=== PATIENT | male | born 1940 | race Two or more races ===

== ENCOUNTER 2017-08-19 16:16 | Inpatient (IN) | payer MEDICARE, MEDICAID ==
[~2017-08-19] VITALS: Ht 182.9 cm; Wt 81.2 kg
--- NOTE | 2017-08-19 16:38 | NUR ---
PT TO ED ROOM 10: Feeling dizzy with nausea and vomiting since yesterday. A/A/O. AMBULATORY WITH STEADY GAIT. SIDE RAILS UP. HOB ELEVATED. AWAITING EVALUATION BY ER PROVIDER.
--- NOTE | 2017-08-19 16:56 | NUR ---
PATIENT AND HIS VERBALLY AGGRESSIVE AND ABUSIVE.
[2017-08-19] MEDS ORDERED: ONDANSETRON HCL/PF 4 MG/2 ML VIAL ONE (17:18)
[2017-08-19] MEDS ORDERED: PANTOPRAZOLE 40 MG VIAL ONE (17:18)
[2017-08-19] MEDS ORDERED: MORPHINE SULFATE INJ 4 MG/ML DISP.SYRIN ONE (17:18)
[2017-08-19] MEDS ORDERED: ONDANSETRON HCL/PF 4 MG/2 ML VIAL IV ONE (17:30)
[2017-08-19] MEDS ORDERED: IV NS 0.9% 1,000 ML BAG IV ONE (17:30)
[2017-08-19] MEDS ORDERED: PANTOPRAZOLE 40 MG VIAL IV ONE (17:30)
[2017-08-19] MEDS ORDERED: MORPHINE SULFATE INJ 2 MG/ML DISP.SYRIN IV ONE (17:30)
[2017-08-19 17:33] LABS: BASOPHILS % (AUTO) 0.6 % (0.0-2.0); EOSINOPHILS % (AUTO) 0.9 % (0.0-6.0); HEMATOCRIT 49 % (39-51); LYMPHOCYTES # (AUTO) 0.8 /CMM (0.8-4.8); LYMPHOCYTES % (AUTO) 11.8 % (20.0-44.0); MEAN CORPUSCULAR HGB CONC 35 g/dl (31.0-36.0); MEAN CORPUSCULAR VOLUME 86 fL (80-96); MONOCYTES # (AUTO) 0.4 /CMM (0.1-1.30); MONOCYTES % (AUTO) 5.5 % (2.0-12.0); NEUTROPHILS # (AUTO) 5.8 /CMM (1.8-8.9); NEUTROPHILS % (AUTO) 81.2 % (43.0-81.0); PLATELET COUNT (AUTO) 164 /CMM (150-450); RDW COEFFICIENT OF VARIATION 13.6 (11.5-15.0); RED BLOOD CELL COUNT(AUTO) 5.66 MIL/uL (4.5-6.0); WHITE BLOOD COUNT (AUTO) 7.1 K/uL (4.3-11.0)
[2017-08-19 17:42] LABS: CALCIUM, SERUM 8.4 mg/dL (8.5-10.1); CARBON DIOXIDE 28 mmol/L (21-32); CHLORIDE 103 mmol/L (98-107); CREATININE 0.8 mg/dL (0.6-1.3); GLUCOSE 98 mg/dL (74-106); POTASSIUM 3.9 mmol/L (3.5-5.1); SODIUM SERUM 139 mmol/L (136-145); UREA NITROGEN, BLOOD 15 mg/dL (7-18)
[2017-08-19 17:48] LABS: ALANINE AMINOTRANSFERASE 34 U/L (12-78); ALBUMIN 3.9 g/dL (3.4-5.0); ALKALINE PHOSPHATASE 73 U/L (46-116); ASPARTATE AMINOTRANSFERASE 16 U/L (15-37); BILIRUBIN,DIRECT 0.3 mg/dL (0.0-0.2); TOTAL PROTEIN, SERUM 7.7 g/dL (6.4-8.2)
[2017-08-19 17:50] LABS: INR 1.06 (0.85-1.15)
[2017-08-19 18:05] LABS: TROPONIN I < 0.017 ng/mL (0.00-0.056)
[2017-08-19] MEDS ORDERED: IV NS 0.9% 500 ML BAG IV ONE (19:00)
--- NOTE | 2017-08-19 19:07 | NUR ---
REPORT RECEIVED FROM GIGI MENDES FOR ASHISH.
--- NOTE | 2017-08-19 19:28 | NUR ---
CALLED NURSING FUNERAL DIRECTOR AND REQUESTED A TELE BED.
--- NOTE | 2017-08-19 19:28 | NUR ---
PT TO CT VIA STRETCHER.
--- NOTE | 2017-08-19 20:03 | NUR ---
NADEEM YU TOOK REPORT FOR TELE ADMI
--- NOTE | 2017-08-19 20:14 | NUR ---
MD AT BEDSIDE SPEAKING WITH PATIENT.
[2017-08-19 20:30] VITALS: BP 135/74
[2017-08-19] MEDS ORDERED: ACETAMINOPHEN 325 MG TABLET PO PRN (20:30)
[2017-08-19] MEDS ORDERED: MORPHINE SULFATE INJ 2 MG/ML DISP.SYRIN IV PRN (20:30)
[2017-08-19] MEDS: Potassium Chloride 20 MEQ in IV D5/0.45 NACL 1,000 ML IV SCH (20:30)
[2017-08-19] MEDS ORDERED: MAGNESIUM HYDROXIDE 30 ML UDC PO PRN (20:30)
[2017-08-19] MEDS ORDERED: Z GUARD REMEDY 2 OZ OINT TP PRN (20:30)
[2017-08-19] MEDS ORDERED: ONDANSETRON HCL/PF 4 MG/2 ML VIAL IVP PRN (20:30)
--- NOTE | 2017-08-19 20:30 | NUR ---
DESIGN LEADALTITUDE CHAMBER TECHNICIAN NOTES ADMITTED 77YO MALE PT WITH DX OF DIZZINESS. PT ALERT, ORIENTED X4, VERBALLY RESPONSIVE. ON ROOM AIR, RESPIRATIONS EVEN, UNLABORED, NO APPARENT DISTRESS NOTED. DENIES ANY PAIN OR DISCOMFORT AT THIS TIME. IV SITE RAC INTACT, PATENT. NSR 66. BODY ASSESSMENT DONE. NO EPISODE OF NAUSEA, NO VOMITING NOTED. REFUSED NASOGASTRIC TUBE TO BE INSERTED, OFFERED X 3 EXPLAINED, REFUSED, [place], STREET PHOTOGRAPHER NOTIFIED. CALL LIGHT WITHIN REACH. BED LOCKED IN LOWEST POSITION. ATTENDED ALL NEEDS. WILL CONTINUE TO MONITOR ACCORDINGLY.
--- NOTE | 2017-08-19 20:40 | NUR ---
SANITATION WORKER NOTE UNABLE TO SCAN D5 0.45% NACL WITH 20 MEQ KCL, VERIFIED WITH TWO RNS. ADMINISTERED ORDERED.
[2017-08-19 22:00] VITALS: BP 135/74
[2017-08-19] MEDS ORDERED: IV PREMIX D5 1/2NS + KCL 1,000 ML IV ONE (22:19)
[2017-08-20] VITALS: BP 130/74
[2017-08-20 00:49] VITALS: BP 130/74
[2017-08-20 04:19] VITALS: BP 109/59
--- NOTE | 2017-08-20 06:20 | NUR ---
PORTABLE MACHINE SANDER CLOSING NOTES PT IN BED RESTING COMFORTABLY, ON ROOM AIR, RESPIRATIONS EVEN, UNLABORED, NO APPARENT DISTRESS NOTED. NO COMPLAIN OF NAUSEA AT THIS TIME, NO VOMITING. STILL COMPLAINING OF SLIGHT DIZZINESS. IV SITE RAC INTACT. ON D5 1/2 NS AND KCL 20MEQ. NSR 68. KEPT CLEAN AND COMFORTABLE, ATTENDED ALL NEEDS. WILL CONTINUE TO MONITOR ACCORDINGLY.
[2017-08-20 06:41] LABS: BASOPHILS % (AUTO) 0.3 % (0.0-2.0); EOSINOPHILS % (AUTO) 2.1 % (0.0-6.0); HEMATOCRIT 43 % (39-51); HEMOGLOBIN 14.8 g/dL (13.5-17.5); LYMPHOCYTES # (AUTO) 0.9 /CMM (0.8-4.8); LYMPHOCYTES % (AUTO) 13.2 % (20.0-44.0); MEAN CORPUSCULAR HGB CONC 35 g/dl (31.0-36.0); MEAN CORPUSCULAR VOLUME 87 fL (80-96); MONOCYTES # (AUTO) 0.6 /CMM (0.1-1.30); MONOCYTES % (AUTO) 8.2 % (2.0-12.0); NEUTROPHILS # (AUTO) 5.4 /CMM (1.8-8.9); NEUTROPHILS % (AUTO) 76.2 % (43.0-81.0); PLATELET COUNT (AUTO) 155 /CMM (150-450); RDW COEFFICIENT OF VARIATION 14.8 (11.5-15.0); RED BLOOD CELL COUNT(AUTO) 4.91 MIL/uL (4.5-6.0); WHITE BLOOD COUNT (AUTO) 7.1 K/uL (4.3-11.0)
[2017-08-20 06:55] LABS: CALCIUM, SERUM 7.5 mg/dL (8.5-10.1); CARBON DIOXIDE 29 mmol/L (21-32); CHLORIDE 106 mmol/L (98-107); CREATININE 0.8 mg/dL (0.6-1.3); GLUCOSE 83 mg/dL (74-106); MAGNESIUM 1.8 mg/dL (1.8-2.4); PHOSPHORUS 2.5 mg/dL (2.5-4.9); POTASSIUM 3.6 mmol/L (3.5-5.1); SODIUM SERUM 141 mmol/L (136-145); UREA NITROGEN, BLOOD 12 mg/dL (7-18)
[2017-08-20 06:57] LABS: CHOLESTEROL 107 mg/dL (<200); HDL CHOLESTEROL 33 mg/dL (40-60); IRON, SERUM 107 ug/dl (50-175); LDL 74 mg/dL (0-99); TOTAL IRON BINDING CAPACITY 225 ug/dl (250-450); TRIGLYCERIDES 62 mg/dL (30-150)
[2017-08-20] MEDS ORDERED: FENTANYL PF 100MCG/2ML AMPUL IV PRN ×2 (07:30)
--- NOTE | 2017-08-20 07:30 | NUR ---
DYNAMITE RECLAIMER OPENING NOTE PATIENT IS ALERT AND ORIENTED x4. NO PAIN AT THIS TIME. NO SOB OR DISTRESS NOTED. CALL LIGHT WITHIN REACH. SAFETY MEASURES IMPLEMENTED. ABLE TO COMMUNICATE NEEDS. CURRENTLY NPO AT THIS TIME. LABS PENDING.AMBULATORY WITH ASSISTANCE. IV INTACT AND PATENT WITH IV FLUIDS RUNNING AT THIS TIME TOLERATING WELL AT 75 ML/HR. AWAITING MD CONSULT WITH DR. HEART. WILL CONTINUE TO MONITOR THROUGHOUT SHIFT.
[2017-08-20] MEDS ORDERED: CALC3.8S BNOSTRILS (07:40)
[2017-08-20 08:00] VITALS: BP 102/56
[2017-08-20] MEDS ORDERED: PANTOPRAZOLE 40 MG VIAL IV SCH (09:00)
[2017-08-20] MEDS: Potassium Chloride 20 MEQ in IV D5/0.45 NACL 1,000 ML IV SCH (09:25)
[2017-08-20] MEDS ORDERED: ONDA4TAB5 PO (11:28)
--- NOTE | 2017-08-20 11:31 | NUR ---
WIRER MAINTENANCE NOTE PATIENT SENT HOME IN STABLE CONDITION, ALERT AND ORIENTED x4. NO PAIN AT THIS TIME. NO SOB OR DISTRESS NOTED. ALL DUE MEDICATIONS GIVEN ORDERED. ALL NURSING CARE NEEDS ATTENDED TO. PRESCRIPTION GIVEN TO PATIENT AND . ALL DISCHARGE INSTRUCTIONS GIVEN TO PATIENT AT BEDSIDE, ABLE TO RETURN ALL INSTRUCTIONS. ALL BELONGINGS ACCOUNTED FOR AND WITH PATIENT AT DISCHARGE. FOLLOW UP APPOINTMENT IN CLINIC. LEFT VIA PRIVATE CAR WITH
== END 2017-08-20 11:30 | disposition home or self-care (01) | DRG 392 ==
LOC: ER 16:25 → TELE 20:02 → MED 08-20 09:02
PROVIDERS: ADMIT Registered Nurse; ATTEND Registered Nurse
DX: A08.4 Viral intestinal infection, unspecified (principal); E86.0 Dehydration; R42 Dizziness and giddiness
CPT/HCPCS: 36415; 70450-TC; 71045-TC; 74018; 80048-TC; 80061-TC; 80076-TC; 82746; 83540-TC; 83690-TC; 83735-TC; 84100-TC; 84484-TC; 85025-TC; 85730-TC; 87040-TC; 87081-TC; A4606; C9113; J2270; J2405; J3480; J3490; J7030; J7040; Z7610

== ENCOUNTER 2018-11-03 10:47 | Inpatient (IN) | payer MEDICARE, MEDICAID ==
[~2018-11-03] VITALS: Ht 175.3 cm; Wt 84.4 kg
[2018-11-03] VITALS (14 sets, daily range): BP systolic 114–162; BP diastolic 34–91
[~2018-11-03 10:47] MED LIST: CALC3.8S BNOSTRILS; ONDA4TAB5 PO
--- NOTE | 2018-11-03 11:05 | NUR ---
"woke up around 830 with dizziness/not balanced/dont feel well around 830a" +L Facial droop. Patient a/ox3, breathing even and unlabored, no distress noted. No s/sx of stroke noted at this time. Attached to the monitor. IV line established on right ac. Dr. Patel at bedside for eval.
[2018-11-03 11:16] LABS: BASOPHILS # (AUTO) 0.1 /CMM (0.0-0.2); BASOPHILS % (AUTO) 0.9 % (0.0-2.0); EOSINOPHILS % (AUTO) 2.5 % (0.0-6.0); HEMATOCRIT 46 % (39-51); LYMPHOCYTES # (AUTO) 1.2 /CMM (0.8-4.8); LYMPHOCYTES % (AUTO) 20.3 % (20.0-44.0); MEAN CORPUSCULAR HGB CONC 35 g/dl (31.0-36.0); MEAN CORPUSCULAR VOLUME 87 fL (80-96); MONOCYTES # (AUTO) 0.5 /CMM (0.1-1.30); MONOCYTES % (AUTO) 7.9 % (2.0-12.0); NEUTROPHILS # (AUTO) 4.2 /CMM (1.8-8.9); NEUTROPHILS % (AUTO) 68.4 % (43.0-81.0); PLATELET COUNT (AUTO) 137 /CMM (150-450); RED BLOOD CELL COUNT(AUTO) 5.24 MIL/uL (4.5-6.0); WHITE BLOOD COUNT (AUTO) 6.1 K/uL (4.3-11.0)
[2018-11-03] MEDS ORDERED: ASPI81TA44 PO (11:28)
[2018-11-03] MEDS ORDERED: MELO-107 PO (11:28)
[2018-11-03 11:29] LABS: CALCIUM, SERUM 8.4 mg/dL (8.5-10.1); CARBON DIOXIDE 25 mmol/L (21-32); CHLORIDE 106 mmol/L (98-107); CREATININE 0.9 mg/dL (0.6-1.3); GLUCOSE 111 mg/dL (74-106); SODIUM SERUM 139 mmol/L (136-145); UREA NITROGEN, BLOOD 20 mg/dL (7-18)
--- NOTE | 2018-11-03 11:42 | NUR ---
patient taken to CT, in stable condition.
[2018-11-03] MEDS ORDERED: ASPIRIN 325 MG TABLET PO ONE (12:30)
[2018-11-03] MEDS ORDERED: ASPIRIN 325 MG TABLET ONE (12:45)
--- NOTE | 2018-11-03 13:14 | NUR ---
ADMIT TO 102 JACQUELYN, ROB OROURKE, OSCAR DIZZINESS, R/O CVA
--- NOTE | 2018-11-03 13:25 | NUR ---
REPORT GIVEN TO CARL YU.
--- NOTE | 2018-11-03 14:00 | NUR ---
PATIENT RECEIVED FROM ER. TEMP 97.5, BP 156/86, HR 62, 98% ON RA. PATIENT REPORTS LEFT SIDED WEAKNESS, DIZZINESS, DIFFICULTY SPEAKING. WORKFORCE MANAGER STRENGTHS UNEQUAL, WEAKER ON LEFT. SMILE EQUAL. SHOULDER SHRUG EQUAL. FAMILY AT BEDSIDE. WILL CONTINUE TO MONITOR
[2018-11-03] MEDS ORDERED: ACETAMINOPHEN 325 MG TABLET PO PRN (16:00)
--- NOTE | 2018-11-03 16:40 | NUR ---
DR. RIVAS CAME TO ASSESS PATIENT, STATES PATIENT SEEMS THE SAME TO HER, ORDERED ICU TRANSFER WITH NEUROCHECKS Q1HR, REPEAT CT IF NECESSARY. NO FURTHER ORDERS. Addendum: 11/03/18 at 2020 by ANIBAL DELGADO RN TIME ERROR.
--- NOTE | 2018-11-03 18:20 | NUR ---
TEXTED DR. RIVAS, PATIENT STRENGTH ON LEFT SIDE IS WEAKER, SMILE IS MORE DROOPY ON LEFT SIDE. PATIENT ON 1L O2, SPO2 98%, BP IS 156/86.
--- NOTE | 2018-11-03 18:40 | NUR ---
DR. RIVAS CAME TO ASSESS PATIENT, STATES PATIENT SEEMS THE SAME TO HER, ORDERED ICU TRANSFER WITH NEUROCHECKS Q1HR, REPEAT CT IF NECESSARY. NO FURTHER ORDERS.
--- NOTE | 2018-11-03 19:30 | NUR ---
BUYER ASSISTANT: RECEIVED PT A/O X 3 WT SLIGHTLY SLURRED SPEECH, SLIGHT LEFT FACIAL DROOP AND LEFT SIDE WEAKNESS. RESTLESS. AFEBRILE. SR WT BBB ON MOTOR BRAKEMAN. ON 2L 02 VIA NC WT 02 SAT 94% AND ABOVE. AWAITING CTA BRAIN AND NECK. SAFETY PRECAUTION NOTED AT ALL TIMES. WILL CONTINUE TO MONITOR. SAFETY PRECAUTION NOTED.
[2018-11-03] MEDS ORDERED: CT SWABBABLE VALVE TRANS SET 1 EA INFUS.SET MC ONE (19:36)
[2018-11-03] MEDS ORDERED: IV NS 0.9% 250 ML IV ONE (19:36)
[2018-11-03] MEDS ORDERED: IOHEXOL-350 100 ML VIAL IV ONE (19:36)
[2018-11-03 23:00] LABS: ABG BASE EXCESS -0.8 mmol/L; ABG OXYGEN SATURATION 93.5 % (92.0-98.5); ABG PCO2 35.4 mmHg (35.0-45.0); ABG PH 7.428 (7.350-7.450); ABG PO2 70.9 mmHg (75.0-100.0); AaDO2 36.4 mmHg; COHb 0.6 % (0.5-1.5); MetHb 0.6 % (0.0-1.5); O2Hb 92.4 % (94.0-97.0); SITE, ABG Right Radial
--- NOTE | 2018-11-03 23:00 | NUR ---
SUPERVISOR GRAPHITE: NOTIFIED SIRI ZENG NP OF CTA BRAIN AND NECK RESULTS. PT VERBALIZED HE WANTS TO DRINK/EAT. SWALLOW SCREEN AT BEDSIDE PERFORMED AND PASSED. NO S/S OF ASPIRATION. FAX MACHINE REPAIRER SAID TO CONTINUE CURRENT DIET. PT ABLE TO EAT WHOLE SOUP FROM FOOD TRAY AND DRINK FLUIDS WT NO DIFFICULTY. HOB AT 90 DEGREES. ASPIRATION PRECAUTION NOTED AT ALL TIMES. WILL CONTINUE TO MONITOR.
[2018-11-04] VITALS (34 sets, daily range): BP systolic 72–188; BP diastolic 20–105
--- NOTE | 2018-11-04 03:00 | NUR ---
AUTOMOTIVE TIRE TECHNICIAN: SIRI, WEB PRESS ROLL TENDER AT BEDSIDE TO EVALUATE PT. MORE RESTLESS AND ANXIOUS. STILL WT LEFT SIDE WEAKNESS & LEFT FACIAL DROOP. AWAITING ORDERS.
[2018-11-04] MEDS: IV NS 0.9% 1,000 ML IV PRN ×2 (03:13→18:24)
[2018-11-04] MEDS: ATORVASTATIN 40 MG TABLET PO SCH ×2 (03:15→21:55)
[2018-11-04 04:48] LABS: BASOPHILS % (AUTO) 0.5 % (0.0-2.0); EOSINOPHILS % (AUTO) 1.5 % (0.0-6.0); HEMATOCRIT 46 % (39-51); HEMOGLOBIN 15.8 g/dL (13.5-17.5); LYMPHOCYTES % (AUTO) 14.7 % (20.0-44.0); MEAN CORPUSCULAR HGB CONC 35 g/dl (31.0-36.0); MEAN CORPUSCULAR VOLUME 87 fL (80-96); MONOCYTES # (AUTO) 0.7 /CMM (0.1-1.30); MONOCYTES % (AUTO) 9.6 % (2.0-12.0); NEUTROPHILS # (AUTO) 5.3 /CMM (1.8-8.9); NEUTROPHILS % (AUTO) 73.7 % (43.0-81.0); PLATELET COUNT (AUTO) 144 /CMM (150-450); RED BLOOD CELL COUNT(AUTO) 5.24 MIL/uL (4.5-6.0); WHITE BLOOD COUNT (AUTO) 7.1 K/uL (4.3-11.0)
[2018-11-04 04:59] LABS: CALCIUM, SERUM 8.2 mg/dL (8.5-10.1); CARBON DIOXIDE 23 mmol/L (21-32); CHLORIDE 105 mmol/L (98-107); CREATININE 0.8 mg/dL (0.6-1.3); GLUCOSE 118 mg/dL (74-106); POTASSIUM 3.7 mmol/L (3.5-5.1); SODIUM SERUM 138 mmol/L (136-145); UREA NITROGEN, BLOOD 18 mg/dL (7-18)
[2018-11-04 05:13] LABS: APPEARANCE,URINE CLEAR (CLEAR); BILIRUBIN,URINE NEGATIVE (NEGATIVE); BLOOD, URINE 1+ Ery/uL (NEGATIVE); COLOR,URINE YELLOW (YELLOW); KETONES,URINE NEGATIVE (NEGATIVE); LEUKOCYTE ESTERASE ,URINE NEGATIVE (NEGATIVE); NITRITE, URINE NEGATIVE (NEGATIVE); PH,URINE 7.5 (5.0-8.0); PROTEIN,URINE NEGATIVE (NEGATIVE); UGLUCOSE NEGATIVE (NEGATIVE); UROBILINOGEN,URINE 0.2 EU/dL (0.2)
[2018-11-04 05:22] LABS: THYROID STIMULATING HORMONE 1.418 uIU/mL (0.358-3.74)
[2018-11-04 05:30] LABS: BACTERIA,URINE Rare /HPF (None Seen); SQUAMOUS EPITHELIAL CELL,UR Rare /HPF (None Seen); WBC,URINE 0-2 /HPF (0-3)
--- NOTE | 2018-11-04 06:45 | NUR ---
DIRECTOR OF ADVERTISING SALES: PT REMAINS A/O X 3, STILL ON 2L O2 VIA NC. RESTLESS AND ANXIOUS THROUGHOUT THE SHIFT. TRANSFERRED ROOM CLOSER TO NURSE STATION WT FREQUENT VISUAL CHECKS AND REASSURANCE. C/O OF LEFT ARM AND LEFT LEG HAVE PROGRESSIVELY GOTTEN WORSE DURING THE SHIFT. STILL SLURRED SPEECH AND LEFT FACIAL DROOP. LEFT A MSG. TO ELEANOR HORNER. ABLE TO DRINK FLUIDS WT NO DIFFICULTY. SAFETY AND ASPIRATION PRECAUTIONS NOTED AT ALL TIMES. WILL ENDORSE TO DAY SHIFT FOR CONTINUITY OF CARE.
--- NOTE | 2018-11-04 07:15 | NUR ---
RECEIVED PATIENT ALERT AND AWAKE. PER SHIVANI YU PATIENT TRANSFERRED TO ICU FOR Q1H NEURO CHECKS AFTER C/O INCREASED WEAKNESS TO LEFT SIDE. PATIENT NOTED WITH LEFT FACIAL DROOPING SLIGHTLY SLURRED SPEECH HOWEVER ABLE TO UNDERSTAND. TOLERATING LOW FLOW NASAL CANNULA. PER RN PATIENT DID NOT SLEEP LAST NIGHT AND FREQUENT EPISODES OF ANXIETY AND RESTLESSNESS NOTED. PATIENT NEEDY AND DEMANDING SO MOVED TO A ROOM CLOSER TO NURSES STATION. NO S/S DISTRESS NOTED. NO SOB OR DIFFICULTY BREATHING. ALL NEEDS IN REACH AND NEEDS ASSESSED. NSR WITH BBB. PATIENT C/OF SHAKING TO LEFT HAND THAT KEEPS HIM FROM SLEEPING; NOTED WITH PREVIOUS HX OF SHAKING. SKIN, SAFETY, ASPIRATION PRECAUTIONS IN PLACE AND WILL MONITOR Addendum: 11/04/18 at 1006 by JOHN SORIANO RN patient right upper and lower wnl. patient left lower severe weakness however able to press against pressure. left upper extremity no grisp strength but able to raise and lower extremity.
--- NOTE | 2018-11-04 08:30 | NUR ---
dr oscar at bedside. aware patient left sided weakness worsened from yesterday. pending miroslava consult Addendum: 11/04/18 at 1932 by JOHN SORIANO RN per md spivey for permissive htn sbp 170 or under okay
[2018-11-04] MEDS: ASPIRIN 81 MG TAB.CHEW PO SCH ×2 (08:35→08:51)
--- NOTE | 2018-11-04 11:15 | NUR ---
patient c/o chronic arm pain. per dr celestina nickerson to give prn tylenol ordered or if desired norco 5/325 prn po qh as needed for pain.
--- NOTE | 2018-11-04 11:20 | NUR ---
patient resting without distress. at bedside.
--- NOTE | 2018-11-04 12:04 | NUR ---
PER DR RIVAS PLEASE ORDER BRAIN MRI WITH AND WITHOUT PER DR PEACE AND DR GUERRERO
--- NOTE | 2018-11-04 13:05 | NUR ---
CALLED X RAY TO HAVE MRI STAT.. DR PEACE AT BEDSIDE FOR EVAL. PER MD ORDER PLAVIX 75MG DAILY TO START NOW. ORDER HEMOPHILIA TEST
--- NOTE | 2018-11-04 13:28 | NUR ---
NOTIFIED DR PEACE HEMOPHILIA LABS WILL TAKE ABOUT 5 DAYS PER HOME ATTENDANT. PER DR CHU F/U WITH CASE MANAGEMENT TO HAVE PATIENT D/C PLANNING TO [facility]. SPOKE WITH HETAL.
[2018-11-04] MEDS: CLOPIDOGREL BISULFATE 75 MG TABLET PO SCH (13:46)
[2018-11-04] MEDS: HYDROCODONE/APAP 5/325MG 1 EACH TABLET PO PRN ×2 (13:52→18:26)
--- NOTE | 2018-11-04 13:52 | NUR ---
PER DR ROB FERRER TO GIVE NORCO NOW PRIOR TO MRI FOR PAIN
--- NOTE | 2018-11-04 14:38 | NUR ---
SPOKE WITH GRAIN BLENDERGURDEEP FARMER.WILL HAVE MRI STARTED IN 30 MIN
--- NOTE | 2018-11-04 16:00 | NUR ---
TOOK PATIENT DOWN TO MRI:[id number] RETURNED FROM MRI PATIENT STABLE : [id number]
--- NOTE | 2018-11-04 17:18 | NUR ---
RECEIVED RESULTS FROM MRI FROM DR NORIEGA. NOTIFIED DR PEACE; WOULD LIKE TO SPEAK WITH DR NORIEGA...DR NORIEGA NOTIFIED. PER DR RIVAS PLEASE ORDER JULIÁN PER DR PEACE REQUEST.
--- NOTE | 2018-11-04 18:30 | NUR ---
dr colorado at bedside discussing mri results with patient. no new orders. given patient son art # to update.
--- NOTE | 2018-11-04 19:31 | NUR ---
care endorsed to rn for carol. all due meds given and all needs met. no deterioration in condition. patient able to move both upper and lower left extremities. no difficulty swallowing. iv site c/d/i/p with ivf per order. skin, safety, aspiration precautions in place and monitored
--- NOTE | 2018-11-04 20:15 | NUR ---
this publicity writer called Dr Buchanan and ended up speaking to Sarah Beth BAND BIAS MACHINE OPERATOR made aware pt bp was systolic 177 and pt stated he had insomnia also pt very anxious stated she will review pt's charts and write new orders.
--- NOTE | 2018-11-04 23:30 | NUR ---
dr oscar exchange was called again spoke with mayra vincent about pt b/p remains elevated the latest one sbp in the 180's and how the pt remains agitated but alert and oriented to see if she wanted to order something for his bp she said okay charge nurse at the side of this race and sports book writer when talking to nursing attendant
[2018-11-05] VITALS (20 sets, daily range): BP systolic 124–178; BP diastolic 48–80
[2018-11-05] MEDS ORDERED: hydrALAZINE HCL IV 20 MG VIAL IV PRN
--- NOTE | 2018-11-05 | NUR ---
was given apresoline for htn with effect bp 140/80 comfort and safety maintained
[2018-11-05] MEDS: HYDROCODONE/APAP 5/325MG 1 EACH TABLET PO PRN ×2 (00:23→22:27)
[2018-11-05 05:07] LABS: BASOPHILS % (AUTO) 0.5 % (0.0-2.0); EOSINOPHILS % (AUTO) 1.6 % (0.0-6.0); HEMATOCRIT 45 % (39-51); HEMOGLOBIN 15.6 g/dL (13.5-17.5); LYMPHOCYTES # (AUTO) 1.1 /CMM (0.8-4.8); LYMPHOCYTES % (AUTO) 12.7 % (20.0-44.0); MEAN CORPUSCULAR HGB CONC 35 g/dl (31.0-36.0); MEAN CORPUSCULAR VOLUME 88 fL (80-96); MONOCYTES # (AUTO) 0.7 /CMM (0.1-1.30); NEUTROPHILS # (AUTO) 6.3 /CMM (1.8-8.9); NEUTROPHILS % (AUTO) 76.2 % (43.0-81.0); PLATELET COUNT (AUTO) 136 /CMM (150-450); RED BLOOD CELL COUNT(AUTO) 5.11 MIL/uL (4.5-6.0); WHITE BLOOD COUNT (AUTO) 8.3 K/uL (4.3-11.0)
[2018-11-05 05:13] LABS: CALCIUM, SERUM 7.9 mg/dL (8.5-10.1); CARBON DIOXIDE 23 mmol/L (21-32); CHLORIDE 105 mmol/L (98-107); CREATININE 0.7 mg/dL (0.6-1.3); GLUCOSE 105 mg/dL (74-106); MAGNESIUM 1.5 mg/dL (1.8-2.4); PHOSPHORUS 3.4 mg/dL (2.5-4.9); POTASSIUM 3.4 mmol/L (3.5-5.1); SODIUM SERUM 139 mmol/L (136-145); UREA NITROGEN, BLOOD 15 mg/dL (7-18)
--- NOTE | 2018-11-05 07:45 | NUR ---
ICU/RN: Pt received, A&Ox4, no distress noted, pt noted with L sided weakness, L sided facial droop, slurred speech. Anxious. Educated pt on poc, meds, s/s stroke, verbalized understanding. Agrees to take meds as ordered. Hygienic care rendered. Will cont to monitor pt.
[2018-11-05] MEDS: ASPIRIN 81 MG TAB.CHEW PO SCH (08:31)
[2018-11-05] MEDS: CLOPIDOGREL BISULFATE 75 MG TABLET PO SCH (08:31)
--- NOTE | 2018-11-05 10:00 | NUR ---
ICU/RN: Speech therapist at bedside; pt tolerated po intake well. Recommendations noted, MD notified, orders received.
[2018-11-05] MEDS: Magnesium 1GM/D5W 100ML PREMIX 100 ML IV SCH ×2 (10:33→11:43)
[2018-11-05] MEDS ORDERED: ZOLPIDEM TARTRATE 5 MG TABLET PO PRN (11:00)
[2018-11-05] MEDS ORDERED: LORAZEPAM 0.5 MG TABLET PO PRN (11:00)
--- NOTE | 2018-11-05 11:00 | NUR ---
ICU/RN: S/P PT dwight; Dr Buchanan at bedside. Neuro assessment performed. Pt updated and educated on POC. Pt adamantly states "I am not a hemophiliac, I wasn't tested." Pt clear for transfer to tele.
[2018-11-05] MEDS ORDERED: POTASSIUM CHLORIDE 20 MEQ TAB.PRT.SR PO SCH (12:00)
--- NOTE | 2018-11-05 12:50 | NUR ---
received patient in stable condition, left sided weakens noted. Patient on aspiration precautions. Patient tolerating room air well. IV fluids D/C. iv line intact and patent. Safety precautions in place, call light within reach.
--- NOTE | 2018-11-05 14:30 | NUR ---
ICU/RN: Pt transferred to [facility] in stable condition, accompanied by RN. Bedside report given to Stephanie for ASHISH. Belongings transferred with pt. Ativan effective for anxiety.
--- NOTE | 2018-11-05 16:24 | NUR ---
Social service consult requested by Dr. Buchanan for possible CVA. Pt. is a 78 year old male who woke up on the morning of 11/03/18 with left sided weakness and dizziness. As a result he had a fall walking up the stairs secondary to current deficits. He was later taken to the ED at [facility] to rule out CVA. Head CT stated, "No acute intracranial hemorrhage. Pt. is alert and oriented x 4. Pt. lives with his spouse and children in their family home. Pt's emergency contact is [facility] . Pt. is pleasant and compliant. Pt. has left side weakness. Pt. will continue to have physical therapy. Pt has a shower chair at home. No other DME's are needed at this time. broadcast operations manager will find appropriate placement for the pt. if needed.
[2018-11-05] MEDS ORDERED: GADODIAMIDE 2.5 MMOL/5 ML VIAL IJ ONE (17:51)
[2018-11-05] MEDS ORDERED: GADODIAMIDE 5 MMOL/10 ML VIAL IJ ONE (17:51)
--- NOTE | 2018-11-05 19:04 | NUR ---
patient on room air, resting in bed with no distress noted. Aspiration and safety precautions in place. Will endorse to next shift for carol.
--- NOTE | 2018-11-05 19:38 | NUR ---
QUALITY IMPROVEMENT SPECIALIST NOTES: RECEIVED PATIENT AWAKE RESTING COMFORTABLY, AWAKE ALERT ORIENTED X 4, DENIES ANY PAIN, HAS LEFT SIDED BODY WEAKNESS, REPOSITIONED FOR COMFORT, ASPIRATION PRECAUTION EMPHASIZE, SAFETY MEASURES IN PLACE, CALL LIGHT WITHIN EASY REACH, ALL NEEDS ATTENDED, IV ACCESS INTACT AND PATENT, WILL CONTINUE TO MONITOR ACCORDINGLY.
--- NOTE | 2018-11-05 20:35 | NUR ---
RN NOTES DAUGHTER NAREN AT BEDSIDE.
[2018-11-05] MEDS: ATORVASTATIN 40 MG TABLET PO SCH (22:25)
--- NOTE | 2018-11-05 22:27 | NUR ---
NON DESTRUCTIVE TESTING INSPECTOR NOTES PATIENT C/O GENERALIZED BODY PAIN, NON PHARMACOLOGICAL INTERVENTION INITIATED, REPOSITIONED FOR COMFORT, NORCO 5/325 MG TAB GIVEN PO PER PATIENT REQUEST, ASPIRATION PRECAUTION EMPHASIZED, ALL SAFETY MEASURES INPLACE, DAUGHTER AT BEDSIDE. WILL CONTINUE TO MONITOR.
--- NOTE | 2018-11-05 23:00 | NUR ---
FIRE HOSE CURER NOTES PATIENT RESTING COMFORTABLY, NOT IN DISTRESS, ASLEEP.
[2018-11-06] VITALS: BP 151/70
[2018-11-06 04:30] VITALS: BP 167/89
--- NOTE | 2018-11-06 04:55 | NUR ---
decker operator notes; 04:30 >Patient found lying on the floor on left side. Denies hitting head, denies any pain, no changes in level of consciousness, alert, orientedX4, vital signs taken Bp 167/89; HR 75: RR 17; sating 98% on Room Air. Patient states he was trying to look for TV remote, no open skin, no bump or any skin breakdown noted upon assessment. Bed in low locked position, bed alarm still on, Charge nurse Clarisa made aware, Nursing Ms [employer] made aware, ALGEBRA TUTOR Sarah Beth informed, awaiting for new order, repositioned patient for comfort, safety measures in place, aspiration precaution emphasized, bed in low locked position, call light within easy reach,bed side rails up x 4. neurological assessment done. will continue to monitor accordingly.
--- NOTE | 2018-11-06 06:02 | NUR ---
WELT MAKER NOTES NO NEW ORDERS FROM ELEANOR HORNER.
[2018-11-06 07:38] LABS: BASOPHILS % (AUTO) 0.4 % (0.0-2.0); EOSINOPHILS % (AUTO) 3.2 % (0.0-6.0); HEMATOCRIT 45 % (39-51); HEMOGLOBIN 15.4 g/dL (13.5-17.5); LYMPHOCYTES # (AUTO) 1.1 /CMM (0.8-4.8); LYMPHOCYTES % (AUTO) 15.5 % (20.0-44.0); MEAN CORPUSCULAR HGB CONC 34 g/dl (31.0-36.0); MEAN CORPUSCULAR VOLUME 88 fL (80-96); MONOCYTES # (AUTO) 0.7 /CMM (0.1-1.30); NEUTROPHILS # (AUTO) 4.9 /CMM (1.8-8.9); NEUTROPHILS % (AUTO) 70.9 % (43.0-81.0); PLATELET COUNT (AUTO) 143 /CMM (150-450); RED BLOOD CELL COUNT(AUTO) 5.12 MIL/uL (4.5-6.0); WHITE BLOOD COUNT (AUTO) 6.9 K/uL (4.3-11.0)
--- NOTE | 2018-11-06 07:41 | NUR ---
C++ QUANT DEVELOPER NOTES CALLED AND SPOKE TO PATIENT'S DAUGHTER NAREN ( [phone] ), INFORMED REGARDING PATIENT'S CONDITION, PT IS RESTING COMFORTABLY AT THIS TIME, NO SIGNS OF ACUTE DISTRESS, TELE MONITOR / LEADS IN PLACE READS SINUS 60s TO 80s.
--- NOTE | 2018-11-06 07:44 | NUR ---
DEBARKER OPERATOR NOTES ENDORSED TO AM NURSE FOR CONTINUITY OF CARE.
--- NOTE | 2018-11-06 07:45 | NUR ---
RN MS NOTES PT IN BED, AWAKE, ALERT AND ORIENTED, NO COMPLAINT OF PAIN, RESPIRATIONS NORMAL, CALL LIGHT WITHIN EASY REACH, NEURO CHECKS DONE, NO CHANGE IN LOC NOTED, WILL CONTINUE TO MONITOR.
[2018-11-06 07:48] LABS: CALCIUM, SERUM 8.2 mg/dL (8.5-10.1); CARBON DIOXIDE 24 mmol/L (21-32); CHLORIDE 104 mmol/L (98-107); CREATININE 0.8 mg/dL (0.6-1.3); GLUCOSE 100 mg/dL (74-106); MAGNESIUM 1.9 mg/dL (1.8-2.4); PHOSPHORUS 3.3 mg/dL (2.5-4.9); POTASSIUM 3.8 mmol/L (3.5-5.1); SODIUM SERUM 138 mmol/L (136-145); UREA NITROGEN, BLOOD 15 mg/dL (7-18)
[2018-11-06 08:00] VITALS: BP 140/64
[2018-11-06 08:01] LABS: FREE PSA < 0.06 ng/mL (0.00-45)
[2018-11-06 08:03] LABS: PROSTATE SPECIFIC ANTIGEN SCR < 0.13 ng/mL (0.00-4.00)
[2018-11-06 08:27] LABS: ALANINE AMINOTRANSFERASE 33 U/L (12-78); ALBUMIN 3.8 g/dL (3.4-5.0); ALKALINE PHOSPHATASE 58 U/L (46-116); ASPARTATE AMINOTRANSFERASE 19 U/L (15-37); BILIRUBIN,DIRECT 0.2 mg/dL (0.0-0.2); TOTAL PROTEIN, SERUM 7.2 g/dL (6.4-8.2)
[2018-11-06] MEDS: ASPIRIN 81 MG TAB.CHEW PO SCH (09:00)
[2018-11-06] MEDS: CLOPIDOGREL BISULFATE 75 MG TABLET PO SCH (09:00)
[2018-11-06 12:00] VITALS: BP 124/97
--- NOTE | 2018-11-06 13:00 | NUR ---
RN MS NOTES PT IN BED, ASLEEP, EASY TO AROUSE, ALERT AND VERBALLY RESPONSIVE, DENIES PAIN, NOT IN DISTRESS, SEEN BY SPEECH THERAPIST AND PHYSICAL THERAPIST, SAFETY PRECAUTIONS OBSERVED, CALL LIGHT WITHIN EASY REACH AT ALL TIMES, TOILETING NEEDS PROVIDED, STROKE EDUCTION PROVIDED, VERBALIZED UNDERSTANDING, NEURO CHECKS DONE ORDERED, KEPT COMFORTABLE.
[2018-11-06 16:00] VITALS: BP 126/69
--- NOTE | 2018-11-06 18:19 | NUR ---
RN MS NOTES PT AWAKE, EATING DINNER, NO COMPLAINT OF PAIN, RESPIRATIONS NORMAL, ASSISTED WITH MEALS, ASSISTED WITH ADL'S, ASSISTED WITH TOILETING NEEDS, ASPIRATION PRECAUTIONS OBSERVED, STROKE EDUCATION PROVIDED, ALL NEEDS ATTENDED.
--- NOTE | 2018-11-06 19:49 | NUR ---
RN OPENING NOTES RECEIVED PATIENT AWAKE, RESTING COMFORTABLY IN BED. FAMILY AT BED SIDE. NO SIGNS OF RESPIRATORY DISTRESS. DENEIS SOB AT THIS TIME. DENIES PAIN OR DISCOMFORT AT THIS TIME. SAFETY PRECAUTIONS IMPLEMENTED; CALL LIGHT WITHIN REACH, BED LOWEST POSITION, BED LOCKED, SIDE RAILS UP X2. WILL CONTINUE TO MONITOR PATIENT THROUGHOUT THE SHIFT.
[2018-11-06 20:00] VITALS: BP 142/71
[2018-11-06] MEDS: ATORVASTATIN 40 MG TABLET PO SCH (21:07)
[2018-11-06] MEDS: HYDROCODONE/APAP 5/325MG 1 EACH TABLET PO PRN (21:21)
[2018-11-07] VITALS: BP 129/69
[2018-11-07 06:35] VITALS: BP 131/75
--- NOTE | 2018-11-07 06:36 | NUR ---
RN CLOSING NOTES PATIENT IS RESTING COMFORTABLY IN BED. NO ACUTE CHANGES OVERNIGHT. NO SIGNS OF RESPIRATORY DISTRESS. NO CHANGE IN LOC. NEURO CHECKS DONE. NO SIGNS OF SHORTNESS OF BREATH. NO SIGNS OF FACIAL GRIMACING OR DISCOMFORT AT THIS TIME. PATIENT TURNED EVERY 2 HOURS. PATIENT COMPLIANT WITH MEDICATION AND CARE. VITALS STABLE. AFEBRILE. SAFETY PRECAUTIONS IMPLEMENTED; CALL LIGHT WITHIN REACH, BED IN LOWEST POSITION, BED LOCKED, SIDE RAILS UP X2. WILL ENDORSE TO ONCOMING AM SHIFT FOR CONTINUITY OF CARE.
--- NOTE | 2018-11-07 07:30 | NUR ---
RN MS NOTES PT IN BED, ASLEEP, EASY TO AROUSE, ALERT AND ORIENTED, NO COMPLAINT OF PAIN OR ANY DISCOMFORT, KEPT WARM AND COMFORTABLE IN BED, CALL LIGHT WITHIN EASY REACH.
[2018-11-07] MEDS: CLOPIDOGREL BISULFATE 75 MG TABLET PO SCH (08:39)
[2018-11-07] MEDS: ASPIRIN 81 MG TAB.CHEW PO SCH (08:39)
[2018-11-07] MEDS ORDERED: CLOP75TA15 PO (11:51)
[2018-11-07] MEDS ORDERED: HYDR-3972 PO (11:51)
[2018-11-07] MEDS ORDERED: ASPI-1169 PO (11:51)
[2018-11-07] MEDS ORDERED: LORA0.5T PO (11:51)
[2018-11-07] MEDS ORDERED: ACET325T53 PO (11:51)
[2018-11-07] MEDS ORDERED: ATOR40TA PO (11:51)
[2018-11-07 12:00] VITALS: BP 127/73
--- NOTE | 2018-11-07 13:00 | NUR ---
RN MS NOTES PT IN BED, AWAKE, ALERT AND ORIENTED, NEURO CHECKS DONE ORDERED, ASSISTED WITH MEALS, ASPIRATION PRECAUTIONS OBSERVED, SEEN BY PHYSICAL THERAPIST AND SPEECH THERAPIST, COMPLIANT WITH MEDS AND INTERVENTIONS, NEEDS ATTENDED, ASSISTED WITH ADL'S AND REPOSITIONING.
[2018-11-07] MEDS ORDERED: MAGNESIUM HYDROXIDE 30 ML UDC PO ONE (15:30)
--- NOTE | 2018-11-07 16:05 | NUR ---
RN MS NOTES PT IN BED, AWAKE, ALERT AND ORIENTED, NO COMPLAINT OF PAIN, NOT IN DISTRESS, WITH COMPLAINT OF CONSTIPATION, MOM GIVEN, DISCHARGE ORDER GIVEN BY AYLIN WEBSTER, PT INFORMED, DISCHARGE AND MEDICATION INSTRUCTIONS PROVIDED TO PT, VERBALIZED UNDERSTANDING, REPORT GIVEN TO SHANTELLE YU OF [place], BELONGINGS ACCOUNTED FOR, FAMILY INFORMED OF DISCHARGE PLAN, PICKED UP BY 2 AMBULANCE PERSONNEL, LEFT VIA GUERNEY IN STABLE CONDITION.
== END 2018-11-07 16:45 | DRG 65 ==
LOC: ER 10:52 → TELE1 13:20 → ICU 18:45 → TELE 11-05 14:08 → MED 11-06 09:16
PROVIDERS: ADMIT Student in an Organized Health Care Education/Training Program; ATTEND Registered Nurse
DX: I63.231 Cerebral infarction due to unspecified occlusion or stenosis of right carotid arteries (principal); G81.94 Hemiplegia, unspecified affecting left nondominant side; D69.6 Thrombocytopenia, unspecified; M19.90 Unspecified osteoarthritis, unspecified site; M81.0 Age-related osteoporosis without current pathological fracture; I10 Essential (primary) hypertension; Z85.46 Personal history of malignant neoplasm of prostate; Z92.3 Personal history of irradiation; R47.81 Slurred speech; R29.704 NIHSS score 4; Z91.81 History of falling
CPT/HCPCS: 36415; 36600; 70450-TC; 70496-TC; 70498-TC; 70553-TC; 71045-TC; 80048-TC; 80061-TC; 80076-TC; 81000-TC; 82962-TC; 83735-TC; 84100-TC; 84153-TC; 84154-TC; 84439-TC; 84443-TC; 84484-TC; 85025-TC; 85610-TC; 85730-TC; 87081-TC; 87086-TC; 92526; 92611-TC; 93307-TC; 93880-TC; 97110-TC; 97112-TC; 97116-TC; 97530-TC; A4349; A9579; G0378; J0360; J3475; J7030; J7050; Q9967

== ENCOUNTER 2019-04-02 10:30 | Outpatient (CLI) | payer MEDICARE, MEDICAID ==
[~2019-04-02 10:30] MED LIST changes: +ACET325T53 PO; +ASPI-1169 PO; +ATOR40TA PO; -CALC3.8S BNOSTRILS; +CLOP75TA15 PO; +HYDR-3972 PO; +LORA0.5T PO; +MELO-107 PO; -ONDA4TAB5 PO
[2019-04-02 11:30] LABS: BASOPHILS % (AUTO) 0.5 % (0.0-2.0); EOSINOPHILS % (AUTO) 1.9 % (0.0-6.0); HEMATOCRIT 41 % (39-51); LYMPHOCYTES # (AUTO) 0.9 /CMM (0.8-4.8); LYMPHOCYTES % (AUTO) 17.5 % (20.0-44.0); MEAN CORPUSCULAR HGB CONC 34 g/dl (31.0-36.0); MEAN CORPUSCULAR VOLUME 88 fL (80-96); MONOCYTES # (AUTO) 0.3 /CMM (0.1-1.30); MONOCYTES % (AUTO) 6.7 % (2.0-12.0); NEUTROPHILS # (AUTO) 3.8 /CMM (1.8-8.9); NEUTROPHILS % (AUTO) 73.4 % (43.0-81.0); PLATELET COUNT (AUTO) 137 /CMM (150-450); RED BLOOD CELL COUNT(AUTO) 4.72 MIL/uL (4.5-6.0); WHITE BLOOD COUNT (AUTO) 5.1 K/uL (4.3-11.0)
[2019-04-02 11:56] LABS: BILIRUBIN,TOTAL 0.6 mg/dL (0.2-1.0); CALCIUM, SERUM 8.1 mg/dL (8.5-10.1); CREATININE 0.7 mg/dL (0.6-1.3); MAGNESIUM 1.8 mg/dL (1.8-2.4); PHOSPHORUS 3.4 mg/dL (2.5-4.9); POTASSIUM 4.2 mmol/L (3.5-5.1); TOTAL PROTEIN, SERUM 7.4 g/dL (6.4-8.2)
[2019-04-02 12:06] LABS: THYROID STIMULATING HORMONE 1.357 uIU/mL (0.358-3.74); URIC ACID 4.5 mg/dL (2.6-7.2)
[2019-04-03 13:06] LABS: FOLIC ACID 6.9 ng/mL (>3.0)
== END 2019-04-02 23:59 | disposition home or self-care (01) ==
LOC: LAB 10:30
DX: D64.9 Anemia, unspecified (principal); E55.9 Vitamin D deficiency, unspecified; I63.9 Cerebral infarction, unspecified; E78.5 Hyperlipidemia, unspecified; I10 Essential (primary) hypertension; M19.90 Unspecified osteoarthritis, unspecified site; Z87.891 Personal history of nicotine dependence; Z79.899 Other long term (current) drug therapy
CPT/HCPCS: 36415; 80053-TC; 80061-TC; 82306; 82728-TC; 83540-TC; 83735-TC; 84100-TC; 84443-TC; 84550-TC; 85025-TC

== ENCOUNTER 2023-11-19 10:40 | Inpatient (IN) | payer MEDICARE, OTHER ==
[~2023-11-19] VITALS: Ht 180.3 cm; Wt 68.0 kg
[~2023-11-19 10:40] MED LIST changes: +METH4TAB16 PO
[2023-11-19] MEDS ORDERED: MORPHINE SULFATE INJ 4 MG/ML DISP.SYRIN ONE (11:24)
[2023-11-19] MEDS: MORPHINE SULFATE INJ 2 MG/ML DISP.SYRIN IV ONE (11:32)
[2023-11-19 11:41] LABS: BASOPHILS % (AUTO) 0.3 % (0.0-2.0); EOSINOPHILS # (AUTO) 0.1 K/uL (0.0-0.7); EOSINOPHILS % (AUTO) 0.9 % (0.0-6.0); HEMATOCRIT 35 % (39-51); HEMOGLOBIN 11.7 g/dL (13.5-17.5); LYMPHOCYTES # (AUTO) 0.9 K/uL (0.8-4.8); LYMPHOCYTES % (AUTO) 13.9 % (20.0-44.0); MEAN CORPUSCULAR HEMOGLOBIN 29 PG (26.0-33.0); MEAN CORPUSCULAR HGB CONC 34 g/dl (31.0-36.0); MEAN CORPUSCULAR VOLUME 84 fL (80-96); MONOCYTES # (AUTO) 0.5 K/uL (0.1-1.30); MONOCYTES % (AUTO) 6.9 % (2.0-12.0); NEUTROPHILS # (AUTO) 5.2 K/uL (1.8-8.9); PLATELET COUNT (AUTO) 215 K/uL (150-450); RED BLOOD CELL COUNT(AUTO) 4.09 MIL/uL (4.5-6.0); WHITE BLOOD COUNT (AUTO) 6.7 K/uL (4.3-11.0)
[2023-11-19 11:48] LABS: CALCIUM, SERUM 8.8 mg/dL (8.5-10.1); CARBON DIOXIDE 29 mmol/L (21-32); CHLORIDE 102 mmol/L (98-107); CREATININE 0.9 mg/dL (0.6-1.3); GLUCOSE 163 mg/dL (74-106); POTASSIUM 3.7 mmol/L (3.5-5.1); SODIUM SERUM 138 mmol/L (136-145); UREA NITROGEN, BLOOD 28 mg/dL (7-18)
[2023-11-19 13:11] LABS: APPEARANCE,URINE SLIGHTLY CLOUDY (CLEAR); BILIRUBIN,URINE 1+ (NEGATIVE); BLOOD, URINE 1+ Ery/uL (NEGATIVE); COLOR,URINE YELLOW (YELLOW); KETONES,URINE TRACE mg/dL (NEGATIVE); LEUKOCYTE ESTERASE ,URINE 2+ (NEGATIVE); NITRITE, URINE NEGATIVE (NEGATIVE); PROTEIN,URINE NEGATIVE (NEGATIVE); UGLUCOSE NEGATIVE (NEGATIVE)
[2023-11-19] MEDS ORDERED: LISI-768 PO (13:14)
[2023-11-19] MEDS ORDERED: IBUP-1957 PO (13:14)
[2023-11-19 13:27] LABS: ADD URINE CULTURE YES; BACTERIA,URINE Many /HPF (None Seen); SQUAMOUS EPITHELIAL CELL,UR Few /HPF (None Seen); WBC,URINE 21-50 /HPF (0-3)
[2023-11-19] MEDS: CEFTRIAXONE 1 G in IV D5W 50 ML IV ONE (13:55)
[2023-11-19] MEDS ORDERED: ONDANSETRON HCL/PF 4 MG/2 ML VIAL IVP PRN (14:30)
[2023-11-19] MEDS: ENOXAPARIN SODIUM 40 MG/0.4 ML DISP.SYRIN SQ SCH (16:06)
[2023-11-19] MEDS: ACETAMINOPHEN 325 MG TABLET PO PRN (18:00)
[2023-11-19] MEDS: IV NS 0.9% 1,000 ML IV PRN (19:47)
[2023-11-19] MEDS ORDERED: CEFEPIME 1 GM VIAL ONE (19:55)
[2023-11-19] MEDS: CEFEPIME 1 GM in IV D5W 50 ML IV SCH (20:02)
[2023-11-20 06:00] VITALS: BP 125/51; TEMP 97.1; O2SAT 98
[2023-11-20 07:12] LABS: CHOLESTEROL 126 mg/dL (<200); HDL CHOLESTEROL 44 mg/dL (40-60); LDL 72 mg/dL (0-99); TRIGLYCERIDES 73 mg/dL (30-150)
[2023-11-20 07:17] LABS: BASOPHILS % (AUTO) 0.3 % (0.0-2.0); EOSINOPHILS # (AUTO) 0.1 K/uL (0.0-0.7); EOSINOPHILS % (AUTO) 1.2 % (0.0-6.0); HEMATOCRIT 30 % (39-51); HEMOGLOBIN 10.4 g/dL (13.5-17.5); LYMPHOCYTES % (AUTO) 14.4 % (20.0-44.0); MEAN CORPUSCULAR HEMOGLOBIN 29 PG (26.0-33.0); MEAN CORPUSCULAR HGB CONC 35 g/dl (31.0-36.0); MEAN CORPUSCULAR VOLUME 84 fL (80-96); MONOCYTES # (AUTO) 0.5 K/uL (0.1-1.30); MONOCYTES % (AUTO) 7.4 % (2.0-12.0); NEUTROPHILS # (AUTO) 5.3 K/uL (1.8-8.9); NEUTROPHILS % (AUTO) 76.7 % (43.0-81.0); PLATELET COUNT (AUTO) 185 K/uL (150-450); RED BLOOD CELL COUNT(AUTO) 3.57 MIL/uL (4.5-6.0); RED CELL DISTRIBUTION WIDTH 14.7 % (11.5-15.0); WHITE BLOOD COUNT (AUTO) 6.9 K/uL (4.3-11.0)
[2023-11-20 07:44] LABS: CALCIUM, SERUM 8.3 mg/dL (8.5-10.1); CARBON DIOXIDE 24 mmol/L (21-32); CHLORIDE 105 mmol/L (98-107); CREATININE 0.6 mg/dL (0.6-1.3); GLUCOSE 90 mg/dL (74-106); MAGNESIUM 2.3 mg/dL (1.8-2.4); SODIUM SERUM 137 mmol/L (136-145); UREA NITROGEN, BLOOD 28 mg/dL (7-18)
[2023-11-20] MEDS: CEFEPIME 1 GM in IV D5W 50 ML IV SCH (08:01)
[2023-11-20] MEDS ORDERED: CEFTRIAXONE 1 G in IV D5W 50 ML IV SCH (09:00)
[2023-11-20] MEDS: KETOROLAC TROMETHAMINE INJ 30 MG/ML VIAL IV PRN (11:23)
[2023-11-20 14:00] VITALS: BP 122/66; TEMP 97.5; O2SAT 98
[2023-11-20] MEDS ORDERED: methylPREDNISolone DOSPAK(4MG) 1 PACK TAB.DS.PK PO ONE (14:00)
[2023-11-20] MEDS: methylPREDNISolone (4MG) 4 MG TABLET (DAY #1) PO ONE (14:44)
[2023-11-20] MEDS: methylPREDNISolone (4MG) 4 MG TABLET (DAY #1, BEFORE DINNER) PO ONE (17:58)
[2023-11-20] MEDS: methylPREDNISolone (4MG) 4 MG TABLET (DAY #1, HS) PO ONE (22:23)
[2023-11-20 23:48] VITALS: BP 126/78; TEMP 97.9; O2SAT 98
[2023-11-21] VITALS (7 sets, daily range): BP systolic 108–132; BP diastolic 58–78; TEMP 97.6–98.4; O2SAT 97–100
[2023-11-21] MEDS ORDERED: AMOXICILLIN TRIHYDRATE 250 MG CAPSULE ONE (05:03)
[2023-11-21] MEDS: AMOXICILLIN TRIHYDRATE 500 MG CAPSULE PO SCH (05:11)
[2023-11-21] MEDS: methylPREDNISolone (4MG) 4 MG TABLET (DAY#2 ACB) PO ONE (07:30)
[2023-11-21] MEDS: AMOXICILLIN TRIHYDRATE 250 MG CAPSULE PO SCH (08:36)
[2023-11-21] MEDS: methylPREDNISolone (4MG) 4 MG TABLET (DAY#2,PC LUNCH) PO ONE (12:32)
[2023-11-21] MEDS ORDERED: HYDROCODONE/APAP 5/325MG TABLET PO PRN (13:00)
[2023-11-21] MEDS: LISINOPRIL (5MG) 5 MG TABLET PO SCH (13:33)
[2023-11-21] MEDS: methylPREDNISolone (4MG) 4 MG TABLET (DAY#2, PC DINNER) PO ONE (17:30)
[2023-11-21] MEDS: methylPREDNISolone (4MG) 4 MG TABLET (DAY#2, HS) PO ONE (20:35)
[2023-11-21] MEDS: DOCUSATE SODIUM 100 MG CAPSULE PO SCH (22:35)
[2023-11-22 06:00] VITALS: BP 104/59; TEMP 97.7; O2SAT 96
[2023-11-22 08:00] VITALS: BP 108/67; TEMP 97.5; O2SAT 100
[2023-11-22] MEDS: methylPREDNISolone (4MG) 4 MG TABLET (DAY#3,ACB) PO ONE (08:07)
[2023-11-22] MEDS: methylPREDNISolone (4MG) 4 MG TABLET (DAY#3,PC LUNCH) PO ONE (12:33)
[2023-11-22 16:00] VITALS: BP 108/66; TEMP 97.5; O2SAT 99
[2023-11-22] MEDS: methylPREDNISolone (4MG) 4 MG TABLET (DAY#3,PC DINNER) PO ONE (16:48)
[2023-11-22 20:00] VITALS: BP 114/72; TEMP 98.1; O2SAT 96
[2023-11-22] MEDS: methylPREDNISolone (4MG) 4 MG TABLET (DAY#3, HS) PO ONE (21:19)
[2023-11-22] MEDS: CIPROFLOXACIN HCL 500 MG TABLET PO SCH (22:00)
[2023-11-23] VITALS: BP 114/72; TEMP 98.1; O2SAT 96
[2023-11-23 04:00] VITALS: BP 116/67; TEMP 98.2; O2SAT 97
[2023-11-23 08:00] VITALS: BP 125/72; TEMP 98.1; O2SAT 98
[2023-11-23] MEDS: methylPREDNISolone (4MG) 4 MG TABLET (DAY #4, PC LUNCH) PO ONE (08:18)
[2023-11-23] MEDS: methylPREDNISolone (4MG) 4 MG TABLET (DAY #4, ACB) PO ONE (08:22)
[2023-11-23] MEDS ORDERED: CIPR-262 PO (13:53)
[2023-11-23] MEDS ORDERED: METH4TAB3 PO (13:53)
[2023-11-23 16:00] VITALS: BP 141/69; TEMP 98.1; O2SAT 96
[2023-11-23] MEDS ORDERED: methylPREDNISolone (4MG) 4 MG TABLET (DAY#4 HS) PO ONE (22:00)
[2023-11-24] MEDS ORDERED: methylPREDNISolone (4MG) 4 MG TABLET (DAY#5, ACB) PO ONE (07:30)
[2023-11-24] MEDS ORDERED: methylPREDNISolone (4MG) 4 MG TABLET (DAY#5,HS) PO ONE (22:00)
[2023-11-25] MEDS ORDERED: methylPREDNISolone (4MG) 4 MG TABLET (DAY#6,ACB) PO ONE (07:30)
== END 2023-11-23 16:10 | disposition home health service (06) | DRG 552 ==
LOC: ER 10:46 → MEDSG1 14:29
PROVIDERS: ADMIT Nurse Practitioner Acute Care; ATTEND Nurse Practitioner Acute Care
DX: M51.36 Other intervertebral disc degeneration, lumbar region (principal); N39.0 Urinary tract infection, site not specified; I69.354 Hemiplegia and hemiparesis following cerebral infarction affecting left non-dominant side; M40.56 Lordosis, unspecified, lumbar region; M62.830 Muscle spasm of back; S39.012A Strain of muscle, fascia and tendon of lower back, initial encounter; M48.07 Spinal stenosis, lumbosacral region; Z85.46 Personal history of malignant neoplasm of prostate; M43.16 Spondylolisthesis, lumbar region; M54.41 Lumbago with sciatica, right side; D64.9 Anemia, unspecified; G89.29 Other chronic pain; Z79.899 Other long term (current) drug therapy; B96.1 Klebsiella pneumoniae [K. pneumoniae] as the cause of diseases classified elsewhere; Y93.9 Activity, unspecified; Y92.009 Unspecified place in unspecified non-institutional (private) residence as the place of occurrence of the external cause
CPT/HCPCS: 36415; 72131-TC; 80048-TC; 80061-TC; 81001; 83735-TC; 84100-TC; 85025-TC; 87086-TC; 97110-TC; 97112-TC; 97116-TC; 97530-TC; 97535-TC; A4223; G0378; J0692; J0696; J1650; J1885; J2270; J7030; J7050; J7060; J7509

== ENCOUNTER 2023-12-18 12:45 | Emergency (ER) | payer MEDICARE, OTHER ==
[~2023-12-18] VITALS: Ht 182.9 cm; Wt 61.2 kg
[~2023-12-18 12:45] MED LIST changes: -ACET325T53 PO; -ASPI-1169 PO; -ATOR40TA PO; +CIPR-262 PO; -CLOP75TA15 PO; -HYDR-3972 PO; +IBUP-1957 PO; +LISI-768 PO; -LORA0.5T PO; -MELO-107 PO; -METH4TAB16 PO; +METH4TAB3 PO
[2023-12-18] MEDS ORDERED: MORPHINE SULFATE INJ 2 MG/ML DISP.SYRIN ONE (13:17)
[2023-12-18] MEDS: MORPHINE SULFATE INJ 2 MG/ML DISP.SYRIN IM ONE (13:18)
[2023-12-18 14:07] VITALS: BP 128/70; TEMP 97.9; O2SAT 97
== END 2023-12-18 14:07 | disposition home or self-care (01) ==
LOC: ER 13:10
DX: M54.42 Lumbago with sciatica, left side (principal); Z87.440 Personal history of urinary (tract) infections; Z85.46 Personal history of malignant neoplasm of prostate
CPT/HCPCS: 99283; 96372; J2270

== ENCOUNTER 2023-12-27 15:31 | Emergency (ER) | payer MEDICARE, OTHER ==
[~2023-12-27] VITALS: Ht 175.3 cm; Wt 60.8 kg
[2023-12-27 15:40] VITALS: TEMP 98.2
[2023-12-27] MEDS ORDERED: ONDANSETRON HCL/PF 4 MG/2 ML VIAL ONE (16:04)
[2023-12-27] MEDS ORDERED: LIDOCAINE 5% (PATCH) 1 EA PATCH TP ONE (16:04)
[2023-12-27] MEDS ORDERED: KETOROLAC TROMETHAMINE INJ 30 MG/ML VIAL ONE (16:04)
[2023-12-27] MEDS ORDERED: MORPHINE SULFATE INJ 4 MG/ML DISP.SYRIN ONE ×2 (16:04→20:22)
[2023-12-27] MEDS: MORPHINE SULFATE INJ 2 MG/ML DISP.SYRIN IV ONE ×2 (16:05→20:29)
[2023-12-27] MEDS: LIDOCAINE 5% (PATCH) 1 EA PATCH TP STA (16:08)
[2023-12-27] MEDS: ONDANSETRON HCL/PF 4 MG/2 ML VIAL IVP ONE (16:09)
[2023-12-27] MEDS: KETOROLAC TROMETHAMINE 15 MG/ML VIAL IV ONE (16:09)
[2023-12-27 16:19] LABS: CALCIUM, SERUM 8.3 mg/dL (8.5-10.1); CARBON DIOXIDE 21 mmol/L (21-32); CHLORIDE 107 mmol/L (98-107); CREATININE 0.7 mg/dL (0.6-1.3); GLUCOSE 95 mg/dL (74-106); POTASSIUM 3.4 mmol/L (3.5-5.1); SODIUM SERUM 139 mmol/L (136-145); UREA NITROGEN, BLOOD 20 mg/dL (7-18)
[2023-12-27 16:32] LABS: ALANINE AMINOTRANSFERASE 24 U/L (12-78); ALBUMIN 3.5 g/dL (3.4-5.0); ALKALINE PHOSPHATASE 92 U/L (46-116); ASPARTATE AMINOTRANSFERASE 18 U/L (15-37); BILIRUBIN,DIRECT 0.1 mg/dL (0.0-0.2); BILIRUBIN,TOTAL 0.7 mg/dL (0.2-1.0); LIPASE 27 U/L (16-77); TOTAL PROTEIN, SERUM 6.7 g/dL (6.4-8.2)
[2023-12-27 16:37] LABS: BASOPHILS % (AUTO) 0.4 % (0.0-2.0); EOSINOPHILS # (AUTO) 0.1 K/uL (0.0-0.7); EOSINOPHILS % (AUTO) 1.9 % (0.0-6.0); HEMATOCRIT 38 % (39-51); HEMOGLOBIN 12.6 g/dL (13.5-17.5); LYMPHOCYTES # (AUTO) 1.1 K/uL (0.8-4.8); LYMPHOCYTES % (AUTO) 17.2 % (20.0-44.0); MEAN CORPUSCULAR HEMOGLOBIN 29 PG (26.0-33.0); MEAN CORPUSCULAR HGB CONC 33 g/dl (31.0-36.0); MEAN CORPUSCULAR VOLUME 87 fL (80-96); MONOCYTES # (AUTO) 0.5 K/uL (0.1-1.30); MONOCYTES % (AUTO) 7.2 % (2.0-12.0); NEUTROPHILS # (AUTO) 4.9 K/uL (1.8-8.9); NEUTROPHILS % (AUTO) 73.3 % (43.0-81.0); PLATELET COUNT (AUTO) 153 K/uL (150-450); RED BLOOD CELL COUNT(AUTO) 4.37 MIL/uL (4.5-6.0); RED CELL DISTRIBUTION WIDTH 17.8 % (11.5-15.0); WHITE BLOOD COUNT (AUTO) 6.7 K/uL (4.3-11.0)
[2023-12-27] MEDS ORDERED: ZOLPIDEM TARTRATE 5 MG TABLET PO PRN (19:30)
[2023-12-27] MEDS ORDERED: ACETAMINOPHEN 325 MG TABLET PO PRN (19:30)
[2023-12-27] MEDS ORDERED: MAGNESIUM HYDROXIDE 30 ML UDC PO PRN (19:30)
[2023-12-27] MEDS ORDERED: Z GUARD REMEDY 4 OZ OINT TP PRN (19:30)
[2023-12-27] MEDS ORDERED: KETOROLAC TROMETHAMINE 15 MG/ML VIAL IV PRN (19:30)
[2023-12-27] MEDS ORDERED: HYDROCODONE/APAP 5/325MG TABLET PO PRN (19:30)
[2023-12-27] MEDS ORDERED: ONDANSETRON HCL/PF 4 MG/2 ML VIAL IVP PRN (19:30)
[2023-12-27] MEDS ORDERED: LACTULOSE 10 G/15 ML UDC (PYXIS) PO ONE (19:30)
[2023-12-27] MEDS ORDERED: NA PHOS,M-B/NA PHOS,DI-BA 1 EA ENEMA RC ONE (19:30)
[2023-12-27] MEDS ORDERED: MAG HYDROX/AL HYDROX/SIMETH 30 ML UDC PO PRN (19:30)
[2023-12-27] MEDS ORDERED: ONDANSETRON HCL/PF 4 MG/2 ML VIAL IV ONE (20:30)
[2023-12-27 20:46] LABS: APPEARANCE,URINE SLIGHTLY CLOUDY (CLEAR); BILIRUBIN,URINE 1+ (NEGATIVE); BLOOD, URINE 2+ Ery/uL (NEGATIVE); COLOR,URINE YELLOW (YELLOW); KETONES,URINE TRACE mg/dL (NEGATIVE); LEUKOCYTE ESTERASE ,URINE 2+ (NEGATIVE); NITRITE, URINE NEGATIVE (NEGATIVE); PROTEIN,URINE TRACE mg/dl (NEGATIVE); UGLUCOSE NEGATIVE (NEGATIVE)
[2023-12-27 20:58] VITALS: BP 114/69; O2SAT 100
[2023-12-27 21:08] LABS: ADD URINE CULTURE YES; BACTERIA,URINE 4+ /HPF (None Seen); WBC,URINE 51-80 /HPF (0-3)
[2023-12-27 21:09] LABS: SQUAMOUS EPITHELIAL CELL,UR Few /HPF (None Seen)
[2023-12-27] MEDS ORDERED: CEFTRIAXONE 1GM BAG (ER ONLY) 50 ML IV ONE (21:57)
[2023-12-27] MEDS: CEFTRIAXONE 1 G in IV D5W 50 ML IV ONE (22:00)
[2023-12-27] MEDS ORDERED: ENOXAPARIN SODIUM 40 MG/0.4 ML DISP.SYRIN SQ SCH (23:00)
[2023-12-28] MEDS ORDERED: PANTOPRAZOLE 40 MG TABLET.DR PO SCH (07:30)
[2023-12-28] MEDS ORDERED: DOCUSATE SODIUM 100 MG CAPSULE PO SCH (09:00)
== END 2023-12-27 23:06 | disposition short-term general hospital (02) ==
LOC: ER 15:52
DX: G89.29 Other chronic pain (principal); M54.42 Lumbago with sciatica, left side; M51.26 Other intervertebral disc displacement, lumbar region; M51.36 Other intervertebral disc degeneration, lumbar region; N39.0 Urinary tract infection, site not specified; I10 Essential (primary) hypertension; Z85.46 Personal history of malignant neoplasm of prostate; Z86.73 Personal history of transient ischemic attack (TIA), and cerebral infarction without residual deficits
CPT/HCPCS: 99285; 74176; 96365; 96375; 71045; 93005; 96376; 85025; 80048; 83690; 80076; 81001; 36415; J2270 ×2; J0696 ×2; J1885; J2405; J7060